=== PATIENT | female | born 1995 | race Caucasian/White ===

== ENCOUNTER → 2020-12-21 | Day surgery (SDC) | payer BC, OTHER ==
[~2020-12-21] MED LIST: HYDROCODON-ACE1 EAC4 PO; OMNICEF 300 MG300 MG PO
[2020-12-21 08:42] LABS: HEMOGLOBIN 13.2 gm/dl (12.3-15.3); RED BLOOD COUNT 4.41 M/UL (4.00-5.10)
== END | disposition home or self-care (01) ==
LOC: OR 07:57
PROVIDERS: Obstetrics & Gynecology
DX: O02.1 Missed abortion (principal); C92.12 Chronic myeloid leukemia, BCR/ABL-positive, in relapse; Z20.822 Contact with and (suspected) exposure to COVID-19; Z87.891 Personal history of nicotine dependence; Z88.0 Allergy status to penicillin; Z88.6 Allergy status to analgesic agent
CPT/HCPCS: 36415; 81001; 85025; 87635; J1100; J2001; J2250; J2405; J2704; J2765; J2795; J3010; J7120

== ENCOUNTER 2022-01-10 20:15 | Emergency (ER) | payer BC ==
[2022-01-10 21:12] LABS: HEMOGLOBIN 13.6 gm/dl (12.3-15.3); RED BLOOD COUNT 4.75 M/UL (4.00-5.10); WHITE BLOOD COUNT 8.1 K/UL (4.5-11.0)
[2022-01-10 21:44] LABS: BUN/CREATININE RATIO 21 (0-10)
== END 2022-01-10 22:52 | disposition home or self-care (01) ==
LOC: ER1 20:15
PROVIDERS: Physician Assistant Medical
DX: O20.0 Threatened abortion (principal); Z3A.01 Less than 8 weeks gestation of pregnancy; Z88.0 Allergy status to penicillin; Z85.6 Personal history of leukemia
CPT/HCPCS: 80053; 81001; 84702; 85025; 86900; 86901; 99284

== ENCOUNTER → 2022-02-03 | Outpatient (CLI) | payer BC ==
[2022-02-03 13:37] LABS: HEMOGLOBIN 13.2 gm/dl (12.3-15.3); RED BLOOD COUNT 4.51 M/UL (4.00-5.10); WHITE BLOOD COUNT 7.3 K/UL (4.5-11.0)
[2022-02-03 14:09] LABS: BUN/CREATININE RATIO 17 (0-10)
== END ==
LOC: LAB 13:15
PROVIDERS: Internal Medicine Hematology & Oncology
DX: C92.11 Chronic myeloid leukemia, BCR/ABL-positive, in remission (principal)
CPT/HCPCS: 36415; 80053; 85025